=== PATIENT | male | born 1965 | race Caucasian/White ===

== ENCOUNTER 2024-04-02 13:00 | Emergency (ER) | payer MEDICAID, SELFPAY ==
[2024-04-02 13:01] VITALS: BP 130/82; PULSE 107; RESP 20; TEMP 37.7; O2SAT 95; BMI 22.4
[2024-04-02 13:15] VITALS: PULSE 107; O2SAT 96
[2024-04-02 13:30] VITALS: PULSE 104; O2SAT 96
--- NOTE | 2024-04-02 13:36 | [facility].EDGENADL ---
Discharge Plan Disposition Patient Disposition: Home, Self-Care Prescriptions Prescriptions: New methocarbamol 500 mg tablet 1,000 mg PO Q8H Qty: 30 0RF lidocaine 5 % adhesive patch,medicated 1 patch topical DAILY Qty: 15 0RF Rx Instructions: leave on most painful area for up to 12 hrs prednisone 50 mg tablet 50 mg PO DAILY 5 Days Qty: 5 0RF Referrals Follow up/Referrals: Chago Veliz MD [Staff Physician] - 04/30/24 1:00 pm Isaiah Matias MD [Staff Physician] - See instructions Provider,MD Latoya [Referring] - See instructions Activity Restrictions/Add. Instructions Additional Instructions/Restrictions: At this time it was felt you are safe to be discharged home. If new or worsening symptoms please do not hesitate to return the emergency department. If you do not have a family doctor please call and schedule an appointment with Dr. Matias to establish care. You have an appointment with our pain management doctor Dr. Veliz on April 30 at 1 PM. Clinical Impressions Clinical Impression: Back pain Stand Alone Forms Stand Alone Forms: Work/School Release Instructions Patient Instructions: DI for Low Back Pain Discharge ED Provider: Taiwo Sethi General Adult HPI General Chief complaint: Back Pain/Injury Stated complaint: back pain Time Seen by Provider: 04/02/24 13:21 Mode of Arrival: Wheelchair Source of Information: Patient Limitations: No Limitations Description of Symptoms (Recalled from ER Triage Doc. by RN): pt states it feels like he has a pinched nerve between shoulder blades and radiates up into neck. pt has been off meds for 4-5 weeks History of Present Illness HPI narrative: Patient is a 58-year-old male with past medical history of chronic back pain not on long-term control opiate therapy who presents emergency department for evaluation of back pain. It is severe, at its normal location, bilateral thoracic paraspinal radiating up into his neck. He moved recently lifting heavy boxes which has exacerbated it. No incontinence, no focal weakness, no saddle anesthesia. He is not interested in opiates and is just wanting to explore options for his back pain. No other acute complaints at this time. Related Data Previous Rx's Medication Instructions Recorded lidocaine 5 % topical patch 1 patch topical DAILY #15 ea 04/02/24 methocarbamol 500 mg tablet 1,000 mg (2 x 500 mg) PO Q8H 04/02/24 muscle spasm #30 tabs prednisone 50 mg tablet 50 mg PO DAILY back pain 5 days #5 04/02/24 tabs Allergies Allergy/AdvReac Type Severity Reaction Status Date / Time No Known Allergies Allergy Unverified 04/02/24 13:39 [facility] Disclaimer: The information contained in this section may have been updated after the patient was seen, as this information can be updated by other users. Social History Smoking Status: Current every day smoker alcohol intake: never current occupational status: other Travel in the last 8 weeks: None ROS Obtained: Yes Systems reviewed as appropriate & no additional complaints except as documented Physical Exam General General appearance: alert and in no apparent distress Head Head exam: atraumatic and normocephalic Eye Eye exam: Present PERRL ENT ENT exam: Present mucous membranes moist Neck Neck exam: Present normal inspection Chest Chest inspection: Present normal inspection and symmetric chest wall rise Respiratory Respiratory exam: Present normal lung sounds bilaterally; Absent respiratory distress Cardiovascular Cardiovascular exam: Present regular rate and normal rhythm Abdominal Exam Abdominal exam: Present soft; Absent tenderness Extremities Exam Extremities exam: Present normal inspection Back Exam Back exam: Present normal inspection and tenderness (Bilateral thoracic paraspinal) Neurological Exam Neurological exam: Present alert and CN II-XII intact; Absent motor sensory deficit Psychiatric Psychiatric exam: Present normal affect Skin Skin exam: Present warm and dry Medical Decision Making Rudolph Inquiry Pt receiving controlled substance: No Vital Signs: 04/02/24 13:01 04/02/24 13:15 04/02/24 13:30 Temperature 99.9 F H Temperature Source Oral Pulse Rate 107 H 104 H Pulse Rate [Right Radial] 107 H Respiratory Rate 20 Blood Pressure [Right Arm] 130/82 Blood Pressure Mean [Right Arm] 98 02 Sat by Pulse Oximetry 95 96 96 Oxygen Delivery Method Room Air Lab Data Lab Results 04/02/24 13:15: WBC 16.5 H, RBC 4.73, Hgb 14.9, Hct 44.6, MCV 94.4 H, MCH 31.5 H, MCHC 33.3, RDW 13.7, Plt Count 344, MPV 8.7, Neut % (Auto) 86.2 H, Lymph % (Auto) 6.6 L, [place] % (Auto) 7.0, Eos % (Auto) 0.0 L, Baso % (Auto) 0.2, Neut # (Auto) 14.2 H, Lymph # (Auto) 1.1, [place] # (Auto) 1.2 H, Eos # (Auto) 0.0, Baso # (Auto) 0.0, Sodium 137, Potassium 3.6, Chloride 108 H, Carbon Dioxide 23, Anion Gap 9.6, BUN 14, Creatinine 1.10, Estimated Creat Clear 76, Estimated GFR 69, Est GFR ( Amer) 83, Glucose 137 H, Calcium 9.6, Total Bilirubin 1.2, AST 25, ALT 21, Alkaline Phosphatase 91, Total Protein 6.9, Albumin 4.0, Globulin 2.9, Albumin/Globulin Ratio 1.4 04/02/24 13:15 04/02/24 13:15 Orders (Tests/Meds): ED MEDICATIONS Discontinued Medications Generic Name Dose Route Start Last Admin Trade Name Freq PRN Reason Stop Dose Admin Acetaminophen 1,000 mg 04/02/24 13:32 04/02/24 13:51 Acetaminophen 1,000mg/100ml Vial IV 04/02/24 13:33 1,000 mg ONCE ONE Administration Dexamethasone Sodium Phosphate 10 mg 04/02/24 13:38 04/02/24 13:51 Dexamethasone 4mg/Ml 1ml Vial IV 04/02/24 13:39 10 mg ONCE ONE Administration Ketorolac Tromethamine 30 mg 04/02/24 13:32 04/02/24 13:53 Ketorolac 30mg/Ml Vial IV 04/02/24 13:33 30 mg ONCE ONE Administration Lidocaine 1 each 04/02/24 13:32 04/02/24 13:54 Lidocaine 5% Transdermal Patch TP 04/02/24 13:33 1 each ONCE ONE Administration Methocarbamol 1,000 mg 04/02/24 13:33 04/02/24 13:53 Methocarbamol 500mg Tablet PO 04/02/24 13:34 1,000 mg ONCE ONE Administration ORDERS Category Date Time Status CBC w/Auto Diff [Complete Blood Count Auto Diff] Stat Lab 04/02/24 13:15 Results CMP [Comprehensive Metabolic Panel] Stat Lab 04/02/24 13:15 Completed Medical Decision Narrative: In summary patient is a 58-year-old male with past medical history described above presents emergency department for evaluation of acute on chronic back pain. Patient is hemodynamically stable nontoxic-appearing upon arrival, afebrile. CT imaging was considered but is likely to be of no benefit and will be deferred. Given the chronicity of his back pain patient will be given multimodal interventions and will likely benefit from referral to pain management. Baseline hematologic labs will be obtained given that he is new to our system. Dose of steroids will be given although of unclear definitive benefit do not carry significant risk given that he does not have history of diabetes. Initial workup reviewed by me, nonspecific leukocytosis, no DANG or critical electrolyte abnormality. Patient had improved symptoms although they are persistent then he has chronic pain and patient is appropriate for outpatient management at this time. Pain management appointment facilitated in April by nursing. Encouraged to establish care with Dr. Matias in the interim. Patient will be discharged with a course of steroids, methocarbamol, lidocaine patches. Critical Care Critical Care Time Critical Care Time: No
[2024-04-02 13:39] LABS: Chloride 108 mmol/L (98-107); Potassium 3.6 mmoL/L (3.5-5.1); Sodium 137 mmol/L (136-145)
[2024-04-02 13:42] LABS: Alanine Aminotransferase 21 U/L (12-78); Albumin/Globulin Ratio 1.4 (1.1-1.8); Alkaline Phosphatase 91 U/L (38-126); Anion Gap 9.6 mEq/L (5-15); Aspartate Amino Transferase 25 U/L (17-59); Bilirubin,Total 1.2 mg/dl (0.2-1.3); Blood Urea Nitrogen 14 mg/dl (9-20); Carbon Dioxide 23 mmol/L (22.0-30.0); Creatinine Clearance Estimated 76 mL/min (50-200); Estimated Glomerular Filt Rate 69 ml/min (>60); GFR (African American) 83 ML/MIN (>60); Globulin 2.9 g/dL (1.3-3.2); Total Protein,Serum 6.9 g/dl (6.3-8.2)
[2024-04-02 13:43] LABS: Calcium 9.6 mg/dl (8.4-10.2); Glucose 137 mg/dl (74-100)
[2024-04-02] MEDS: DEXAMETHASONE 4MG/ML 1ML VIAL 10 MG IV (13:51)
[2024-04-02] MEDS: ACETAMINOPHEN 1,000MG/100ML VIAL 1000 MG IV (13:51)
[2024-04-02] MEDS: METHOCARBAMOL 500MG TABLET 1000 MG PO (13:53)
[2024-04-02] MEDS: KETOROLAC 30MG/ML VIAL 30 MG IV (13:53)
[2024-04-02] MEDS: LIDOCAINE 5% TRANSDERMAL PATCH 1 EACH TP (13:54)
[2024-04-02 14:04] LABS: Basophils % 0.2 % (0.1-2.0); Hematocrit 44.6 % (42.0-52.0); Hemoglobin 14.9 g/dL (14.1-18.0); Lymphocytes # 1.1 K/mm3 (0.7-4.5); Lymphocytes % 6.6 % (10-50); Mean Corpuscular HGB Conc 33.3 g/dL (31.8-35.4); Mean Corpuscular Hemoglobin 31.5 pg (27.0-31.2); Mean Corpuscular Volume 94.4 fl (80-94); Mean Platelet Volume 8.7 fl (7.4-10.4); Monocytes # 1.2 K/mm3 (0.1-1.0); Neutrophils # 14.2 K/mm3 (1.8-7.8); Neutrophils % 86.2 % (37.0-80.0); Platelet Count 344 K/mm3 (142-424); Red Blood Count 4.73 M/mm3 (4.60-6.20); Red Cell Distribution Width 13.7 % (11.5-17.5); White Blood Count 16.5 K/mm3 (4.8-10.8)
[2024-04-02 14:11] LABS: MANUAL DIFFERENTIAL MANUAL DIFFERENTIAL (MANUAL DIFF)
[2024-04-02 14:46] VITALS: BP 114/71; PULSE 73; O2SAT 95
[2024-04-02 14:56] VITALS: BP 114/71; PULSE 73; RESP 16; TEMP 37.7; O2SAT 95
[2024-04-02 15:29] LABS: Lymphocytes % 10 % (10-50); Monocytes % 5 % (2-9); Neutrophils % 85 % (42-76); Platelet Estimate Normal; RBC Morphology Normal; Total Cells Counted 100
== END 2024-04-02 14:59 | disposition home or self-care (01) ==
PROVIDERS: Emergency Provider Emergency Medicine; PCP Family Medicine
DX: M54.6 Pain in thoracic spine (principal); G89.29 Other chronic pain; F17.210 Nicotine dependence, cigarettes, uncomplicated; X50.0XXA Overexertion from strenuous movement or load, initial encounter
CPT/HCPCS: 80053; 85007; 85025; 96374; 96375; 99284; J0131; J1100; J1885

== ENCOUNTER 2024-04-03 18:00 | Outpatient (CLI) | payer MEDICAID, SELFPAY ==
[2024-04-03 20:22] LABS: Chol/HDL Ratio 2.7 (1-3.5); Cholesterol 115 mg/dl (140-200); HDL Cholesterol 43 mg/dl (40-60); Magnesium 2.2 mg/dl (1.6-2.3); Triglycerides 62 mg/dl (30-150); VLDL Cholesterol 12 mg/dL (0-40)
[2024-04-03 20:24] LABS: Hemoglobin A1C 5.2 % (4.0-6.0)
[2024-04-03 20:33] LABS: Direct LDL Cholesterol 45.71 mg/dL (100-129)
[2024-04-03 20:54] LABS: Prostate Specific Ag Screen 1.4 ng/ml (0.0-4.0); Thyroid Stimulating Hormone 0.54 uIU/mL (0.465-4.68)
== END 2024-04-03 23:59 | disposition home or self-care (01) ==
LOC: LAB.DROPOF 04-04 10:17
PROVIDERS: PCP Student in an Organized Health Care Education/Training Program; Visit Provider Student in an Organized Health Care Education/Training Program
DX: Z13.1 Encounter for screening for diabetes mellitus (principal); Z12.5 Encounter for screening for malignant neoplasm of prostate; Z13.220 Encounter for screening for lipoid disorders; Z13.29 Encounter for screening for other suspected endocrine disorder; M54.9 Dorsalgia, unspecified
CPT/HCPCS: 80061; 83036; 83735; 84443; G0103

== ENCOUNTER 2024-04-04 18:51 | Outpatient (CLI) | payer MEDICAID, SELFPAY ==
--- NOTE | 2024-04-04 18:56 | XR_ITS ---
PROCEDURE INFORMATION: Exam: XR Cervical Spine Exam date and time: 04/04/2024 6:57 PM Age: 58 years old Clinical indication: Neck pain; Additional info: Chronic back pain TECHNIQUE: Imaging protocol: Radiologic exam of the cervical spine. Views: 4 or 5 views. COMPARISON: CR XR THORACIC SPINE 3V 04/04/2024 6:57 PM FINDINGS: Bones/joints: Normal. No acute fracture. Normal alignment. Soft tissues: Unremarkable. IMPRESSION: No acute findings.
--- NOTE | 2024-04-04 18:56 | XR_ITS ---
PROCEDURE INFORMATION: Exam: XR Lumbosacral Spine Exam date and time: 04/04/2024 6:57 PM Age: 58 years old Clinical indication: Low back pain; Additional info: Chronic back pain TECHNIQUE: Imaging protocol: Radiologic exam of the lumbosacral spine. Views: 2 or 3 views. COMPARISON: CR XR THORACIC SPINE 3V 04/04/2024 6:57 PM FINDINGS: Bones/joints: Facet joint arthropathy at L5-S1. No acute fracture. Normal alignment. Soft tissues: Unremarkable. IMPRESSION: No acute findings.
--- NOTE | 2024-04-04 18:56 | XR_ITS ---
PROCEDURE INFORMATION: Exam: XR Thoracic Spine Exam date and time: 04/04/2024 6:57 PM Age: 58 years old Clinical indication: Pain in thoracic spine; Additional info: Chronic back pain TECHNIQUE: Imaging protocol: Radiologic exam of the thoracic spine. Views: 3 views. COMPARISON: CR XR CERVICAL SPINE 5V 04/04/2024 6:57 PM FINDINGS: Bones/joints: Multilevel disc height narrowing and anterior osteophyte formation. No acute fracture. Normal alignment. Soft tissues: Unremarkable. IMPRESSION: No acute findings.
== END 2024-04-04 23:59 | disposition home or self-care (01) ==
PROVIDERS: PCP Student in an Organized Health Care Education/Training Program; Visit Provider Student in an Organized Health Care Education/Training Program
DX: M54.9 Dorsalgia, unspecified (principal); G89.29 Other chronic pain
CPT/HCPCS: 72050; 72072; 72100